=== PATIENT | male | born 1970 | race American Indian/Alaskan Native ===

== ENCOUNTER 2017-12-06 09:01 | Emergency (ER) | payer SELFPAY ==
[2017-12-06 09:46] VITALS: BP 110/76; PULSE 79; RESP 18; TEMP 98; O2SAT 97
--- NOTE | 2017-12-06 10:15 | C.PDOC ---
History Of Present Illness 47-year-old male, PMHx includes Hypertension, presents to the emergency department requesting detox from Heroin. Patients last use was this morning. States he uses ten bags a day. No SI/HI. Time Seen by Provider: 12/06/17 10:06 Chief Complaint (Nursing): Substance Abuse History Per: Patient History/Exam Limitations: no limitations Onset/Duration Of Symptoms: Days Current Symptoms Are (Timing): Still Present Past Medical History Reviewed: Historical Data, Nursing Documentation, Vital Signs Vital Signs: Last Vital Signs Temp 98 F 12/06/17 09:46 Pulse 79 12/06/17 09:46 Resp 18 12/06/17 09:46 BP 110/76 12/06/17 09:46 Pulse Ox 97 12/06/17 10:23 - Medical History PMH: HTN - [facility] DETOXIFICATION SERVICES FOR SUBSTANCE ABUSE TREATMENT (02/05/16) Family History: States: No Known Family Hx - Social History Hx Alcohol Use: Yes Hx Substance Use: Yes (heroin, marajuana) - Immunization History Hx Influenza Vaccination: No Review Of Systems Except As Marked, All Systems Reviewed And Found Negative. Cardiovascular: Negative for: Chest Pain Respiratory: Negative for: Shortness of Breath Gastrointestinal: Negative for: Vomiting Psych: Negative for: Suicidal ideation Physical Exam - Physical Exam Appears: Non-toxic, No Acute Distress Skin: Warm, Dry, No Rash Head: Atraumatic, Normacephalic Nose: Normal Oral Mucosa: Moist Lips: Normal Appearing Neck: Normal ROM Extremity: Normal ROM Neurological/Psych: Oriented x3 ED Course And Treatment O2 Sat by Pulse Oximetry: 97 (on RA) Pulse Ox Interpretation: Normal Progress Note: Case discussed with health service worker, states that there are no detox beds available. Patient will be discharged with a list of detox facilities and educated on pre screening process. Disposition - Disposition Disposition: HOME/ ROUTINE Disposition Time: 15:19 Condition: STABLE Additional Instructions: please call for detox bed. return to er with worsening symptoms or concerns. Instructions: Polysubstance Abuse (ED) Forms: [facility] (Lithuanian) - Clinical Impression Clinical Impression: Drug abuse - Scribe Statement The provider has reviewed the documentation as recorded by the Scribe (Aniyah Rivera) All medical record entries made by the Scribe were at my direction and personally dictated by me. I have reviewed the chart and agree that the record accurately reflects my personal performance of the history, physical exam, medical decision making, and the department course for this patient. I have also personally directed, reviewed, and agree with the discharge instructions and disposition.
== END 2017-12-06 10:32 | disposition home or self-care (01) ==
LOC: C.ER 09:01
DX: F19.10 Other psychoactive substance abuse, uncomplicated (principal)

== ENCOUNTER 2017-12-07 14:20 | Inpatient (IN) | payer MEDICAID, OTHER ==
--- NOTE | 2017-12-07 14:58 | C.PDOC ---
History Of Present Illness 47-year-old male, presents to the emergency department, pre-screened for detox from Heroin. Patient states he snorts, and last use was 10:00 this morning. Denies any withdrawal symptoms, nausea/vomiting. No other complaints at this time. Time Seen by Provider: 12/07/17 14:45 Chief Complaint (Nursing): Substance Abuse History Per: Patient History/Exam Limitations: no limitations Current Symptoms Are (Timing): Still Present Past Medical History Reviewed: Historical Data, Nursing Documentation, Vital Signs Vital Signs: Last Vital Signs Temp 98.5 F 12/10/17 09:26 Pulse 90 12/10/17 09:26 Resp 19 12/10/17 09:26 BP 108/81 12/10/17 09:26 Pulse Ox 97 12/10/17 09:26 - Medical History PMH: HTN Denies: HIV, Seizures, Sexually Transmitted Disease - [facility] DETOXIFICATION SERVICES FOR SUBSTANCE ABUSE TREATMENT (02/05/16) Family History: States: No Known Family Hx - Social History Hx Alcohol Use: Yes Hx Substance Use: Yes (heroin, marajuana) - Immunization History Hx Influenza Vaccination: No Review Of Systems Except As Marked, All Systems Reviewed And Found Negative. Constitutional: Negative for: Fever Respiratory: Negative for: Shortness of Breath Gastrointestinal: Negative for: Vomiting Neurological: Negative for: Weakness, Numbness, Headache, Dizziness Psych: Negative for: Suicidal ideation Physical Exam - Physical Exam Appears: Non-toxic, No Acute Distress, Other (Calm, cooperative) Skin: Warm, Dry, No Rash Head: Atraumatic Nose: No Epistaxis Oral Mucosa: Moist Lips: No Swelling Cardiovascular: Rhythm Regular Respiratory: No Accessory Muscle Use Gastrointestinal/Abdominal: Soft, No Tenderness Neurological/Psych: Oriented x3, Other (no focal deficits) ED Course And Treatment - Laboratory Results Result Diagrams: 12/07/17 15:07 12/07/17 15:07 ECG: Interpreted By Me, Viewed By Me ECG Rhythm: Sinus Rhythm (LAFB, No acute ischemia) ECG Interpretation: No Acute Changes Rate From EC O2 Sat by Pulse Oximetry: 98 (on RA) Pulse Ox Interpretation: Normal Disposition - Disposition Disposition: HOSPITALIZED Disposition Time: 16:02 Condition: STABLE - Clinical Impression Clinical Impression: Opioid abuse - Scribe Statement The provider has reviewed the documentation as recorded by the Scribe (Aniyah Rivera) All medical record entries made by the Scribe were at my direction and personally dictated by me. I have reviewed the chart and agree that the record accurately reflects my personal performance of the history, physical exam, medical decision making, and the department course for this patient. I have also personally directed, reviewed, and agree with the discharge instructions and disposition.
[2017-12-07 15:13] LABS: BASO # 0.1 K/uL (0.0-0.2); BASO % 0.5 % (0.0-2.0); EOS # 0.1 K/uL (0.0-0.7); EOS % 0.4 % (0.0-4.0); HEMOGLOBIN 11.9 g/dL (12.0-18.0); LYMPH # 2.3 K/uL (1.0-4.3); LYMPH % 17.1 % (20.0-40.0); MEAN CELL VOLUME 79.6 fL (80.0-94.0); MEAN CORPUSCULAR HEMOGLOBIN 26.1 pg (27.0-31.0); MEAN CORPUSCULAR HGB CONC 32.8 g/dL (33.0-37.0); MEAN PLATELET VOLUME 7.4 fL (7.2-11.7); MONO % 7.6 % (0.0-10.0); NEUT % 74.4 % (50.0-75.0); RBC 4.56 Mil/uL (4.40-5.90); WHITE BLOOD COUNT 13.5 K/uL (4.8-10.8)
[2017-12-07 15:28] LABS: ALB/GLOB RATIO 0.9 (1.0-2.1); ALBUMIN 3.6 g/dL (3.5-5.0); ALT/SGPT 32 U/L (21-72); AST/SGOT 22 U/L (17-59); BLOOD UREA NITROGEN 13 mg/dL (9-20); CALCIUM 8.8 mg/dl (8.6-10.4); GFR AFRICAN-AMERICAN > 60; GFR NON-AFRICAN AMERICAN > 60
[2017-12-07 15:32] LABS: URINE BACTERIA RARE (<OCC); URINE BILIRUBIN NEGATIVE (NEGATIVE); URINE BLOOD NEGATIVE (NEGATIVE); URINE CLARITY Hazy (Clear); URINE COLOR Yellow (YELLOW); URINE GLUCOSE (UA) NORMAL (Normal); URINE LEUKOCYTE ESTERASE NEG Leu/uL (Negative); URINE NITRATE NEGATIVE (NEGATIVE); URINE PROTEIN NEGATIVE (NEGATIVE)
[2017-12-07 15:38] LABS: BARBITURATES, UR NEGATIVE (NEGATIVE); BENZODIAZEPINES, UR NEGATIVE (NEGATIVE); PHENCYCLIDINE, UR NEGATIVE (NEGATIVE)
[2017-12-07 15:40] LABS: OPIATES, UR POSITIVE (NEGATIVE)
--- NOTE | 2017-12-07 19:32 | PCM.BM ---
<Priscila Lieberman - Last Filed: 12/07/17 19:31> Treatment Plan Problems - Problems identified on initial assessmt Potential for opiate withdrawal Date Initiated: 12/07/17 Time Initiated: 19:32 Assessment reference: NA Status: Active Treatment assets and liabiliti Patient Assests: ADL independent, physically healthy, cognitively intact Patient Liabilities: substance abuse (Heroin) - Milieu Protocol Maintain good personal hygiene: daily Encourage regular showers, daily Remind patient to perform daily oral care, daily Assist patient to perform ADL's Conduct patient checks and document Observation sheet: Q15 minutes Maintain personal safety: every shift Educate patient to report safety concerns to staff, every shift Monitor environment for contraband/sharps Medication safety: Monitor for expected outcome, potential side effects: every shift, Assess barriers to learning: every shift, Assess readiness for medication education: every shift <Dorothy Woods - Last Filed: 12/08/17 14:46> - Diagnosis (1) Opioid use disorder, severe, dependence Status: Acute Interventions: 12/08/17 14:46 * Assess 7x/week regarding severity of withdrawal * Educate regarding risks, benefits, side effects and alternatives of medications * Use Motivational Interviewing for abstinence * Use CBT for relapse prevention * Medication management for withdrawal symptoms * Encourage medication assisted treatment *
[2017-12-08] MEDS ORDERED: Buprenorphine Hydrochloride 2 mg SL ONE ×2 (05:38→06:40)
--- NOTE | 2017-12-08 10:04 | PCM.PSYCH ---
Initial Psychiatric Evaluation - Initial Psychiatric Evaluation Type of Admission: Voluntary Legal Status: Capacity Chief Complaint (in patient's own words): "I want to change" History of Present Illness and Precipitating Events: The pt is seen and chart reviewed, case discussed. This is a 47 y/o AAM, single with 2 adult children. 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 He is here for heroin detox. He states he's been using 10-15 bags every day intranasally, on and off, over 20 years. His longest sobriety was 14 months and he relapsed about 1 year ago. His last use was yesterday am. He was here in 2016. He is using cocaine 2-3x/week intranasally, and other drugs except for marijuana which he smokes less now. He also smokes cigarettes 1 pack per day. Patient also admits to drinking beer or liquor sometimes. However, he denies any withdrawal symptoms from alcohol other than some anxiety. Patient has been to detox 3x before and went to [facility] after his detox here in 2016. No methadone/Suboxone program. He was attending [facility] program but quit a few months ago. Patient is on probation. Past psych history: He denies Family psych and substance use history: He denies Medical history: He denies Current Medications: Active Medications Generic Name Dose Route Start Last Admin Trade Name Freq PRN Reason Stop Dose Admin Clonidine HCl 0.1 mg 12/08/17 03:14 Catapres PO Q6 PRN Opiate Withdrawal Hydroxyzine HCl 25 mg 12/08/17 03:13 Atarax PO Q6 PRN Anxiety Ondansetron HCl 4 mg 12/08/17 03:12 Zofran Tab PO Q6 PRN Nausea/Vomiting Past Psychiatric History - Past Psychiatric History Previous Treatment History: None Pertinent Medical Hx (Current Medical&Sleep Prob, Allergies): Allergies Allergy/AdvReac Type Severity Reaction Status Date / Time No Known Allergies Allergy Verified 02/05/16 09:42 No Known Home Med 12/06/17 Review of Systems - Neurological Neurological: UNREMARKABLE - Psychiatric Psychiatric: Abnormal Sleep Pattern, Anxiety. absent: Hallucinations, Homicidal Ideation, Paranoia, Suicidal Ideation Mental Status Examination - Personal Presentation Personal Presentation: Looks stated age - Affect Affect: Constricted - Motor Activity Motor Activity: Calm - Reliability in Providing Information Reliability in Providing Information: Good - Speech Speech: Organized - Mood Mood: Anxious - Formal Thought Process Formal Thought Process: No Impairment - Cognitive Functions Orientation: Person, Place, Situation, Time Sensorium: Alert Attention/Concentration: Attentive Judgement: Intact, as evidence by: Insight regarding need for hospitalization Memory: Recent intact, as evidence by: Ability to recall events of the day, Remote intact, as evidenced by: Abilit to recall sig. life events - Risk Risk: Withdrawal, Diminished functioning - Strength & Assets Inventory Strength & Assets Inventory: Cooperative - Limitations Limitations: Other DSM 5 DX - DSM 5 DSM 5 Diagnosis: Opioid withdrawal opioid use d/o - severe Cocaine use d/o - severe Alcohol use d/o - moderate Tobacco use d/o - Recommended/Plan of Treatment Treatment Recommendations and Plan of Treatment: Methadone detox Gabapentin for augmentation As needed medications All risks, benefits and alternatives of the meds discussed, and the pt agreed and understood. Attend groups and activities Supportive therapy and psychoeducation [place] for abstinence CBT for relapse prevention Encourage MAT Refer to rehab or IOP, and self-help groups Smoking cessation with DC Nicotine patch 34 min Projected ELOS: 4-5 days Prognosis: Good w treatment - Smoking Cessation Smoking Cessation Initiated: Yes
--- NOTE | 2017-12-08 16:28 | CARD ---
APPROVED REPORT EKG Measurement Heart [id number] <Conclusion> Normal sinus rhythm Incomplete right bundle branch block Left anterior fascicular block Abnormal ECG
[2017-12-09] MEDS ORDERED: Buprenorphine Hydrochloride 2 mg SL ONE (08:00)
[2017-12-09] MEDS ORDERED: Bacitracin 500 Units/gm Oint Foilpak UD TOP PRN (08:29)
[2017-12-09] MEDS ORDERED: Buprenorphine Hydrochloride 2 mg SL SCH (10:00)
--- NOTE | 2017-12-09 22:15 | PCM.PYCHPN ---
Psychiatric Progress Note - Psychiatric Progress Note Patient seen today, length of contact: 16 min Patient Chief Complaint: "I am not well" Problems Identified/Issues Discussed: The pt is seen, chart reviewed, case discussed with staff. The pt is compliant with medications and reports no side-effects. Symptoms are improving but needs more time to stabilize. After care discussed, support and psychoeducation given. Medication Change: Yes (detox changes daily) Medical Record Reviewed: Yes Mental Status Examination - Cognitive Function Orientation: Person, Place, Situation, Time Memory: Intact Attention: WNL Concentration: Poor Association: WNL Fund of Knowledge: WNL - Mood Mood: Anxious - Affect Affect: Constricted - Speech Speech: Appropriate - Formal Thought Process Formal Thought Process: No Impairment - Suicidal Ideation Suicidal Ideation: No - Homicidal Ideation Homicidal Ideation: No Goal/Treatment Plan - Goal/Treatment Plan Need for Continued Stay: Discharge may exacerbated symptoms, Severe functional impairment Progress Toward Problem(s) and Goals/Treatment Plan: Methadone detox Gabapentin for augmentation As needed medications All risks, benefits and alternatives of the meds discussed, and the pt agreed and understood. Attend groups and activities Supportive therapy and psychoeducation [place] for abstinence CBT for relapse prevention Encourage MAT Refer to rehab or IOP, and self-help groups Smoking cessation with [place] Nicotine patch
[2017-12-10 06:07] VITALS: TEMP 98.5
[2017-12-10 09:28] VITALS: BP 108/81; PULSE 90; RESP 19
--- NOTE | 2017-12-10 09:37 | PCM.PYCHDC ---
Mental Status Examination - Mental Status Examination Orientation: Person, Place, Situation, Time Memory: Intact Mood: Anxious Affect: Constricted Speech: Appropriate Attention: WNL Concentration: WNL Association: WNL Fund of Knowledge: WNL Formal Thought Process: No Impairment Suicidal Ideation: No Current Homicidal Ideation?: No Discharge Summary - Discharge Note Reason for Hospitalization: Heroin detox Consultations:: List each consultation separately and include: 1. Reason for request. 2. Findings. 3. Follow-up Summary of Hospital Course include:: 1. Description of specific treatment plan utilized for patients during their course of treatmen. 2. Summarize the time- course for resolution of acute symptoms and/or regressed behaviors. 3. Describe issues identified and worked on during hospitalization. 4. Describe medication utilized. 5. Describe medical problems identified and treated. 6. Reassessment of suicide risk Summary of Hospital Course: The pt is seen and chart reviewed, case discussed. On admission: This is a 47 y/o AAM, single with 2 adult children. 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 He is here for heroin detox. He states he's been using 10-15 bags every day intranasally, on and off, over 20 years. His longest sobriety was 14 months and he relapsed about 1 year ago. His last use was yesterday am. He was here in 2016. He is using cocaine 2-3x/week intranasally, and other drugs except for marijuana which he smokes less now. He also smokes cigarettes 1 pack per day. Patient also admits to drinking beer or liquor sometimes. However, he denies any withdrawal symptoms from alcohol other than some anxiety. Patient has been to detox 3x before and went to [facility] after his detox here in 2016. No methadone/Suboxone program. He was attending [facility] program but quit a few months ago. Patient is on probation. Past psych history: He denies Family psych and substance use history: He denies Medical history: He denies Hospital course: The pt was admitted and started on treatment with psychotherapy, support, psychoeducation and medications. [place] and CBT used briefly. The pt attended few groups and activities, as well as milieu therapy. All the risks and benefits of medications are discussed and the patient understood and agreed. The pt was improving with the treatments providedbut he said he stayed "enough" and that he had to take care of "some things" so he left AMA. Risks of leaving AMA incl. relapse, OD and even , discussed and he understood. - Final Diagnosis (DSM 5) Condition upon Discharge: STABLE DSM 5: Opioid withdrawal opioid use d/o - severe Cocaine use d/o - severe Alcohol use d/o - moderate Tobacco use d/o Disposition: AGAINST MEDICAL ADVICE Follow-up Treatment Plan: Continue below medications after discharge. Follow after care plan as discussed. Use relapse prevention skills Return to ER or call 911 if suicidal, homicidal or symptoms relapse. Stay away from stress, alcohol and drugs. See primary doctor regularly and get labs.
[2017-12-10] MEDS ORDERED: Multiple Vitamins Tab PO SCH (10:00)
[2017-12-12 18:40] VITALS: O2SAT 98
== END 2017-12-10 09:45 | disposition left against medical advice (07) | DRG 743 ==
LOC: C.ER 14:20 → C.7D 16:02
PROVIDERS: ADMIT Psychiatry & Neurology Psychiatry; ATTEND Psychiatry & Neurology Psychiatry
DX: F11.23 Opioid dependence with withdrawal (principal); F14.90 Cocaine use, unspecified, uncomplicated; F17.210 Nicotine dependence, cigarettes, uncomplicated; F41.9 Anxiety disorder, unspecified; I10 Essential (primary) hypertension; Z68.22 Body mass index [BMI] 22.0-22.9, adult